=== PATIENT | female | born 1995 | race Caucasian/White ===

== ENCOUNTER 2017-08-29 08:58 | Emergency (ER) | payer SELFPAY | END 2017-08-29 09:53 | disposition home or self-care (01) | LOC: D.ER 08:58 | DX: S29.012A Strain of muscle and tendon of back wall of thorax, initial encounter (principal); X50.0XXA Overexertion from strenuous movement or load, initial encounter; Y93.89 Activity, other specified; Y92.029 Unspecified place in mobile home as the place of occurrence of the external cause ==

== ENCOUNTER 2018-05-18 22:09 | Emergency (ER) | payer OTHER ==
[~2018-05-18] VITALS: Ht 162.6 cm; Wt 75.0 kg
[2018-05-18 22:18] VITALS: Ht 162.6 cm; Wt 75.0 kg
[2018-05-18] MEDS ORDERED: IMITREX50 MG PO (22:19)
[2018-05-19] MEDS ORDERED: SUMATRIPTAN SUC25 MG PO (02:05)
[2018-05-19 02:45] VITALS: BP 120/88
== END 2018-05-19 02:46 | disposition home or self-care (01) ==
LOC: D.ER 22:09
DX: G43.109 Migraine with aura, not intractable, without status migrainosus (principal)

== ENCOUNTER 2019-06-23 05:33 | Day surgery (SDC) | payer MEDICAID ==
[~2019-06-23] VITALS: Ht 162.6 cm; Wt 81.6 kg
[~2019-06-23 05:33] MED LIST: IMITREX50 MG PO; SUMATRIPTAN SUC25 MG PO
[2019-06-23 06:17] LABS: HEMATOCRIT 37.3 % (36.0-48.0); HEMOGLOBIN 12.8 g/dL (12-16); MCH 28.7 pg (26.0-34.0); MCHC 34.3 g/dL (31.0-37.0); MCV 83.6 fL (80.0-100.0); MEAN PLATELET VOLUME 10.3 fL (7.4-10.4); RBC 4.46 10x6/uL (4.00-5.40); RDW 13.7 % (11.5-14.5); WBC 6.7 10x3/uL (4.8-10.8)
[2019-06-23 06:47] VITALS: BP 120/82; Ht 162.6 cm; Wt 81.6 kg
[2019-06-23 08:13] LABS: HCG URINE NEGATIVE (NEGATIVE)
--- NOTE | 2019-06-27 16:30 | OP ---
PATIENT NAME: RACHELLE YOU MEDICAL RECORD: [id number] :89 LOCATION:[facility] ADMISSION DATE: SURGEON: TRAV LATIF MD DATE OF OPERATION: 06/23/2019 PREOPERATIVE DIAGNOSES: Chronic pharyngitis, nasal obstruction, and turbinate hypertrophy. POSTOPERATIVE DIAGNOSES: Chronic pharyngitis, nasal obstruction, and turbinate hypertrophy. PROCEDURE: Tonsillectomy, adenoidectomy, and outfracture of the inferior turbinates. SURGEON: Trav Latif MD ANESTHESIA: General orotracheal. BLOOD LOSS: 2 cc. SPECIMENS: Right and left tonsil. COMPLICATIONS: None. DISPOSITION: Recovery stable. PROCEDURE IN DETAIL: She was brought to the operating room and placed in supine position, sedated and intubated by anesthesia. The table was turned 90 degrees. Head drape was applied. She had been decongested with Afrin preoperatively. Using a headlight, a Alfredo-Luan mouth gag was carefully inserted and elevated on towel on her chest. The palate was examined and palpated, it was normal. A red rubber catheter was placed to the right side of the nose and the pharynx was grasped with tonsil clamp to retract the soft palate. Using a mirror, the nasopharynx was examined. Suction cautery on a setting of 30 was used to ablate the adenoid tissue. The posterior inferior turbinates were cauterized. Then, her catheter was let down, the right tonsil was grasped at superior pole with a straight Allis clamp. Spatula tip cautery on a setting of 8 was used to dissect out the tonsil along its capsule, preserving the anterior and posterior tonsillar pillar. The left tonsil was removed in the same fashion. Then, both sides of the nose were irrigated with saline. The pharynx was suctioned. Tonsillar fossae were agitated. Suction cautery on a setting of 18 was used to control minimal oozing. With the field clean and dry, the Alfredo-Luan mouth gag was let down and removed. Then, the nose was examined using a headlight and nasal speculum. Both inferior turbinates were outfractured with Dieterich elevator. Some polypoid changes posteriorly were cauterized with suction cautery on a setting of 20. There was no bleeding. She was awakened, extubated, and transported to recovery in good condition. No complications. TRANSINT:[id number] Voice Confirmation ID: [id number] DOCUMENT ID: [id number] OPERATIVE REPORT [id number] RACHELLE YOU ERIC MD at 1630 CC: [id number] DICTATION DATE: 06/23/19 1057 [facility]SIDE [facility] OPERATOR: 06/23/19 1119 [facility] [place] 06/23/19 [facility] [address] [place] [address]
--- NOTE | 2019-06-27 16:30 | HP ---
PATIENT: INOCENCIA YOU MEDICAL RECORD: [id number] ACCOUNT: [id number] LOCATION:[facility] : 89 ADMISSION DATE: 06/23/19 PCP: CATRACHITO ASTORGA MD HISTORY AND PHYSICAL EXAMINATION HISTORY OF PRESENT ILLNESS: Inocencia is 23 years old. She has been having problems with tonsils, recurrent pharyngitis, obstructive symptoms, tonsilliths since she was a child. She is being admitted for tonsillectomy, adenoidectomy as well as outfracture of the inferior turbinates. PAST MEDICAL HISTORY: Includes reactive airway disease and reflux. CURRENT MEDICATIONS: Prednisone, promethazine, Imitrex. ALLERGIES: No known drug allergies. PHYSICAL EXAMINATION: GENERAL: She is healthy-appearing, developmentally normal. FACE: Normal, symmetric. No lesions. EYES: Sclerae and conjunctivae are normal. EARS: Canals and TMs are normal. NOSE: Large inferior turbinates. ORAL CAVITY AND OROPHARYNX: A 3+ tonsils with crypts and tonsilliths. NECK: No masses, no adenopathy. CHEST: Clear. CARDIOVASCULAR: Regular rate and rhythm, no murmur. EXTREMITIES: Normal. IMPRESSION: Chronic caseous tonsillitis, obstructive adenotonsillar hypertrophy, nasal obstruction, and turbinate hypertrophy. PLAN: Tonsillectomy, adenoidectomy as well as outfracture the inferior turbinates. TRANSINT:[id number] Voice Confirmation ID: [id number] DOCUMENT ID: [id number] TRAV ANTUNEZ MD at 1630 CC: [id number] DICTATION DATE: 06/18/19 1458 DYE RANGE TENDER: 06/18/19 1529 [facility] 06/23/[address] [address]
== END 2019-06-23 11:20 | disposition home or self-care (01) ==
LOC: EDBD 05:33 → D.OPS 05:33
PROVIDERS: Anesthesiology; ATTEND Otolaryngology
DX: J35.01 Chronic tonsillitis (principal); J34.89 Other specified disorders of nose and nasal sinuses; J34.3 Hypertrophy of nasal turbinates; Z01.812 Encounter for preprocedural laboratory examination

== ENCOUNTER 2019-08-30 19:12 | Emergency (ER) | payer MEDICAID ==
[~2019-08-30] VITALS: Ht 162.6 cm; Wt 86.4 kg
[2019-08-30 19:15] VITALS: Ht 162.6 cm; Wt 86.4 kg
[2019-08-30 19:41] LABS: BASOPHILS 0.1 % (0-2); EOSINOPHILS 0.5 % (0-7); HEMATOCRIT 39.8 % (36.0-48.0); HEMOGLOBIN 13.3 g/dL (12-16); IMMATURE GRANULOCYTES 0.1 % (0-5); LYMPHOCYTES 34.9 % (15-50); MCH 28.4 pg (26.0-34.0); MCHC 33.4 g/dL (31.0-37.0); MCV 84.9 fL (80.0-100.0); MONOCYTES 8.3 % (2-11); NEUTROPHILS 56.1 % (40-80); RBC 4.69 10x6/uL (4.00-5.40)
[2019-08-30 19:46] LABS: PLATELET COUNT 320 10x3/uL (130-400)
[2019-08-30 19:50] LABS: APTT 29.5 SECONDS (22.8-39.4); INR 1.05 (0.85-1.17); PROTIME 13.2 SECONDS (11.6-15.0)
[2019-08-30 19:51] LABS: D-DIMER-QUANTITATIVE < 0.27 ug/mLFEU (0.20-0.54)
[2019-08-30 20:01] LABS: CALC OSMOLALITY 278 mosm/kg (275-300); CALCIUM 9.2 mg/dL (8.5-10.1); CARBON DIOXIDE 29.9 mmol/L (21.0-32.0); CHLORIDE - SERUM 103 mmol/L (98-107); CREATININE - SERUM 0.6 mg/dL (0.6-1.3); GLUCOSE 103 mg/dL (74-106); POTASSIUM - SERUM 3.3 mmol/L (3.5-5.1); SODIUM 139 mmol/L (136-145); UREA NITROGEN 14 mg/dL (7-18); eGFR NON AFRICAN AMERICAN > 90 mL/min (90-120)
[2019-08-30 20:07] LABS: ALBUMIN 4.1 g/dL (3.4-5.0); ALKALINE PHOSPHATASE 61 U/L (46-116); ALT (SGPT) 16 U/L (10-68); BILIRUBIN - TOTAL 0.47 mg/dL (0.2-1.3); CKMB 0.3 U/L (0.0-3.6); CREATINE KINASE 84 UL (21-215); MAGNESIUM - SERUM 2.1 mg/dL (1.8-2.4); PROTEIN - SERUM 8.2 g/dL (6.4-8.2)
[2019-08-30 20:09] LABS: TROPONIN-I < 0.017 ng/mL (0.000-0.060)
[2019-08-30] MEDS ORDERED: OMEPRAZOLE40 MG PO (20:46)
[2019-08-30 20:57] LABS: APPEARANCE CLEAR (CLEAR); BILIRUBIN NEGATIVE (NEGATIVE); COLOR STRAW (YELLOW); GLUCOSE NEGATIVE (NEGATIVE); KETONE NEGATIVE (NEGATIVE); NITRITE NEGATIVE (NEGATIVE); PROTEIN NEGATIVE (NEGATIVE); UROBILINOGEN NORMAL (NORMAL)
[2019-08-30 20:58] LABS: HCG URINE NEGATIVE (NEGATIVE)
[2019-08-30 21:25] VITALS: BP 133/84
== END 2019-08-30 21:25 | disposition home or self-care (01) ==
LOC: D.ER 19:12
PROVIDERS: Family Medicine
DX: R07.9 Chest pain, unspecified (principal); K21.9 Gastro-esophageal reflux disease without esophagitis